=== PATIENT | male | born 1995 | race Caucasian/White ===

== ENCOUNTER 2017-07-10 19:49 | Emergency (ER) | payer BC ==
[2017-07-10] MEDS: predniSONE 20 MG TAB PO (22:49)
[2017-07-10] MEDS: ALBUTEROL 0.083% (NEB) 2.5 MG/3 ML AMP NEB (23:20)
[2017-07-10] MEDS: IPRATROPIUM (NEB) 0.5 MG/2.5 ML AMP NEB (23:20)
== END 2017-07-11 00:03 | disposition home or self-care (01) ==
LOC: FTE 07-11 00:03
DX: J06.9 Acute upper respiratory infection, unspecified (principal)
CPT/HCPCS: 94664; 99284-25

== ENCOUNTER 2017-09-02 15:16 | Emergency (ER) | payer BC ==
[2017-09-02] MEDS: SOD CHLORIDE 0.9% 1,000 ML IV (16:55)
[2017-09-02] MEDS: morphine 2 MG INJ IV (16:56)
[2017-09-02] MEDS: ONDANSETRON 4 MG INJ IV (16:56)
[2017-09-02] MEDS: KETOROLAC 30 MG INJ IV (16:57)
[2017-09-02 17:18] LABS: ADD MAN DIFF? NO
[2017-09-02 17:19] LABS: WHITE BLOOD COUNT 11.8 10^3/ul (4.8-10.8)
[2017-09-02 17:19] LABS: BASOPHILS % 0.3 % (0.0-2.0); HEMATOCRIT 40.2 % (42.0-52.0); HEMOGLOBIN 13.9 g/dl (14.0-18.0); LYMPHOCYTES # 0.9 10^3/ul (0.8-2.9); LYMPHOCYTES % 7.4 % (18.0-55.0); MEAN CORPUSCULAR HEMOGLOBIN 29.4 pg (29.0-33.0); MEAN CORPUSCULAR HGB CONC 34.6 g/dl (32.0-37.0); MEAN CORPUSCULAR VOLUME 85.2 fl (72.0-104.0); MEAN PLATELET VOLUME 10.9 fl (7.4-10.4); MONOCYTE # 1.4 10^3/ul (0.3-0.9); MONOCYTES % 12.1 % (0.0-13.0); NEUTROPHIL # 9.4 10^3/ul (1.6-7.5); NEUTROPHILS % 79.8 % (30.0-74.0); PLATELET COUNT 174 10^3/UL (140-415); RED BLOOD COUNT 4.72 10^6/ul (4.70-6.10); RED CELL DISTRIBUTION WIDTH 11.9 % (11.5-14.5)
[2017-09-02 17:38] LABS: ALANINE AMINOTRANSFERASE 37 IU/L (13-69); ALBUMIN 4.5 g/dl (3.3-4.9); ALBUMIN/GLOBULIN RATIO 1.28; ALKALINE PHOSPHATASE 93 IU/L (42-121); ANION GAP 19 (8-16); ASPARTATE AMINO TRANSFERASE 29 IU/L (15-46); BILIRUBIN,INDIRECT 0.5 mg/dl (0-1.1); BILIRUBIN,TOTAL 0.5 mg/dl (0.2-1.3); BLOOD UREA NITROGEN 12 mg/dl (7-20); CALCIUM 9.3 mg/dl (8.4-10.2); CARBON DIOXIDE 25 mmol/L (21-31); CHLORIDE 97 mmol/L (97-110); CREATININE 1.03 mg/dl (0.61-1.24); GLUCOSE 104 mg/dl (70-220); LIPASE 46 U/L (23-300); POTASSIUM 4.1 mmol/L (3.5-5.1); SODIUM 137 mmol/L (135-144)
== END 2017-09-02 18:42 | disposition home or self-care (01) ==
LOC: FTE 15:16
DX: J02.9 Acute pharyngitis, unspecified (principal); R11.10 Vomiting, unspecified; F17.210 Nicotine dependence, cigarettes, uncomplicated
CPT/HCPCS: 80053; 83690; 85025; 87880; 96374; 96375; 99284-25

== ENCOUNTER → 2017-10-10 | Outpatient (CLI) | payer BC ==
[2017-10-10 15:53] LABS: WHITE BLOOD COUNT 4.2 10^3/ul (4.8-10.8)
[2017-10-10 15:53] LABS: ADD MAN DIFF? NO; BASOPHILS % 0.5 % (0.0-2.0); EOSINOPHILS # 0.1 10^3/ul (0.0-0.5); EOSINOPHILS % 1.7 % (0.0-7.0); HEMATOCRIT 44.8 % (42.0-52.0); HEMOGLOBIN 15.4 g/dl (14.0-18.0); LYMPHOCYTES # 1.9 10^3/ul (0.8-2.9); LYMPHOCYTES % 46.5 % (18.0-55.0); MEAN CORPUSCULAR HEMOGLOBIN 29.2 pg (29.0-33.0); MEAN CORPUSCULAR HGB CONC 34.4 g/dl (32.0-37.0); MEAN CORPUSCULAR VOLUME 84.8 fl (72.0-104.0); MEAN PLATELET VOLUME 10.6 fl (7.4-10.4); MONOCYTE # 0.5 10^3/ul (0.3-0.9); MONOCYTES % 12.7 % (0.0-13.0); NEUTROPHIL # 1.6 10^3/ul (1.6-7.5); NEUTROPHILS % 38.4 % (30.0-74.0); PLATELET COUNT 189 10^3/UL (140-415); RED BLOOD COUNT 5.28 10^6/ul (4.70-6.10); RED CELL DISTRIBUTION WIDTH 12.3 % (11.5-14.5)
[2017-10-10 16:58] LABS: LACTATE DEHYDROGENASE 382 IU/L (313-618)
[2017-10-10 17:06] LABS: IMMUNOGLOBULIN A 247 mg/dl (70-400)
[2017-10-11 11:56] LABS: ASO TITER 448 IU/mL (<250)
[2017-10-11 13:26] LABS: IMMUNOGLOBULIN E 40 kU/L (<OR=114); LYMPHOCYTE - % CD4 (HELPER) 35 % (30-61); LYMPHOCYTE - %CD8 (SUPPRESSOR) 30 % (12-42); LYMPHOCYTE - ABSOLUTE 1994 cells/uL (850-3900); LYMPHOCYTE - ABSOLUTE CD4 705 cells/uL (490-1740); LYMPHOCYTE - ABSOLUTE CD8 598 cells/uL (180-1170); LYMPHOCYTE - CD4/CD8 RATIO 1.18 (0.86-5.00)
== END | disposition home or self-care (01) ==
LOC: LAB 15:24
DX: B34.9 Viral infection, unspecified (principal)
CPT/HCPCS: 82784; 82785; 82787; 83615; 85025; 86060; 86360

== ENCOUNTER 2019-02-22 04:55 | Emergency (ER) | payer BC ==
[2019-02-22] MEDS: HYDROCODONE/APAP (5/325) TAB PO (05:33)
[2019-02-22] MEDS: DIPHTH/TET/ACEL PERTUSS (ADULT) 0.5 ML VIAL IM* (05:34)
[2019-02-22] MEDS: TETRACAINE 0.5% 4 ML OPH BOTH EYES (06:17)
[2019-02-22] MEDS: FLUORESCEIN STRIP BOTH EYES (06:17)
[2019-02-22] MEDS: ERYTHROMYCIN 1 GM OPH OINT BOTH EYES (07:51)
[2019-02-22] MEDS: CEPHALEXIN 500 MG CAP PO (07:51)
== END 2019-02-22 08:20 | disposition home or self-care (01) ==
LOC: FTE 08:20
DX: S01.111A Laceration without foreign body of right eyelid and periocular area, initial encounter (principal); S06.0X0A Concussion without loss of consciousness, initial encounter; S16.1XXA Strain of muscle, fascia and tendon at neck level, initial encounter; S05.01XA Injury of conjunctiva and corneal abrasion without foreign body, right eye, initial encounter; Y08.89XA Assault by other specified means, initial encounter; Z23 Encounter for immunization
CPT/HCPCS: 70450; 70486; 72125; 76536; 90471; 90715; 99284-25

== ENCOUNTER 2019-03-10 17:15 | Emergency (ER) | payer BC ==
[2019-03-10] MEDS: LORAZEPAM 1 MG TAB PO (18:11)
== END 2019-03-10 18:20 | disposition home or self-care (01) ==
LOC: FTE 17:15
DX: F41.9 Anxiety disorder, unspecified (principal)
CPT/HCPCS: 99283